=== PATIENT | female | born 1945 | race Caucasian/White ===

== ENCOUNTER 2017-01-28 13:58 | Inpatient (IN) | payer BC, MEDICARE ==
--- NOTE | ~2017-01-28 | DS ---
Discharge Summary [id number] [facility] [place]. [address] NAME: GIANNA CARDENAS : 41 STATUS : DIS IN PAT#: [id number] AGE: 71 ADM/REG DATE : 01/28/17 MR#: [id number] REPORT SERV DATE: 02/03/17 DICTATED BY: VIKAS PEREZ. DATE: 02/02/17 REPORT STATUS : Draft TRANSCRIBED BY: MODL DATE: 02/02/17 ADMISSION DATE: 01/28/2017 DISCHARGE DATE: 02/02/2017 LINEN FOLDER: Dr. Hollingsworth for Orthopedic Spine. FINAL DIAGNOSES: 1. L5 compression fracture. 2. Diabetes. 3. History of rheumatoid arthritis with Sjogren syndrome. 4. Anxiety and depression. 5. Anemia of chronic disease. HOSPITAL COURSE: Please refer to the H and P done by Dr. Loco on 01/28/2017 and the interim discharge summary done by Dr. Garzon on 02/01/2017. Since I took care of this patient, the patient was already fitted with a brace and has worked with Physical Therapy. We are waiting for [facility] to approve the patient. She was medically approved yesterday, but we are waiting for insurance. Today, we got a report that she is financially approved. She will be then transferred to [facility] today with the above diagnosis. DISCHARGE MEDICATIONS: She will be on the following medications: 1. Aspirin 81 mg a day. 2. Ativan 2 mg twice a day as needed. 3. Lexapro 30 mg a day. 4. [place] 5/325 one tab 4 times a day p.r.n. 5. Metformin 500 mg twice a day. FOLLOWUP: The patient will follow up with [facility] doctor, then follow up with Dr. Isadora Forbes after [facility] discharge, then follow up with Dr. Hollingsworth in four weeks' time. This has been explained to the patient. She agreed and understood the plan. ANYA/KYLIE Vikas Perez M.D. / [id number] CC: Richi Ardon M.D.
--- NOTE | ~2017-01-28 | HP ---
History And Physical [id number] [place]. [address] NAME: GIANNA BISHOP : 41 STATUS : ADM IN [facility]#: [id number] AGE: 71 ADM/REG DATE : 01/28/17 MR#: [id number] REPORT SERV DATE: 01/28/17 DICTATED BY: RUPERTO MAIER DATE: 01/28/17 REPORT STATUS : Draft TRANSCRIBED BY: MODL DATE: 01/28/17 DATE OF ADMISSION: 01/28/2017 CHIEF COMPLAINT: Severe back pain. HISTORY OF PRESENT ILLNESS: This is a 71-year-old female, who presents to the emergency room at [facility] with the above-mentioned complaints. History is obtained from the patient, her who is at bedside, and reviewing data available on the [employer] system. According to the patient and her , Mrs. Bishop had a fall about four weeks ago. She was trying to get up from her bed and go to the bathroom when she lost her footing and fell to the floor. She does not remember all the details of the fall as she was still very sleepy. Anyway, about couple of weeks ago, she started having possibly an upper respiratory infection with rattling in her chest and cough. The cough actually started her back pain and it hurt very bad when she coughed. She saw her physician, Dr. Isadora Forbes, who said it is a respiratory infection, treated her with outpatient oral antibiotics. This did not do anything for the pain and finally in the last few days or so, the patient has been totally bedridden, unable to move or get up and do activities of daily living. She was in tears and finally decided to come to the emergency room here to be evaluated. In the emergency room, CT scan of the spine showed L5 compression fracture with bony retropulsion and narrowing of the canal as well. The ER physicians were able to talk to Dr. Luc Hollingsworth today, who advised admission under the Hospitalist Service and he would consult in the morning. At the time of my evaluation, she denied any chest pain or palpitations. She had no orthopnea. She had a cough, which was essentially nonproductive, not associated with any hemoptysis, night sweats, or weight loss. She did have a fall as mentioned above without any loss of consciousness. No history of fevers, chills, nausea, vomiting, dysuria. No history of hematemesis, hematochezia, or hematuria. No other history of recent travel or exposures, other than those mentioned above. PAST MEDICAL HISTORY: Significant for history of diabetes mellitus type 2, history of Sjogren syndrome, and rheumatoid arthritis, nephrolithiasis in the past, history of diverticulitis, gastroesophageal reflux disease, anxiety, and depression. SOCIAL HISTORY: She has never smoked. Does not drink or use recreational drugs. FAMILY HISTORY: Noncontributory. MEDICATIONS AT HOME: Reviewed by me in the chart today and reordered by me. REVIEW OF SYSTEMS: As in history of present illness. All other systems were reviewed in detail and are quite unremarkable. History And Physical [address] [place]. [address] NAME: GIANNA BISHOP : 41 STATUS : ADM IN [facility]#: [id number] AGE: 71 ADM/REG DATE : 01/28/17 MR#: [id number] REPORT SERV DATE: 01/28/17 DICTATED BY: RUPERTO MAIER DATE: 01/28/17 REPORT STATUS : Draft TRANSCRIBED BY: KYLIE DATE: 01/28/17 PHYSICAL EXAMINATION: GENERAL: This is a very pleasant 71-year-old, in considerable discomfort due to her back pain. HEENT: Her head was atraumatic, normocephalic. She is alert, awake, oriented to time, place, and person. Pupils are equal, reacting to light and accommodating. External ocular muscles are intact. Membranes are moist and pink. Sclerae are nonicteric. NECK: Supple with no jugular venous distention, lymphadenopathy, or thyromegaly. LUNGS: Clear to auscultation with no wheezes, rubs, or crackles. HEART: Sounds were regular with no murmurs, rubs, or gallops. ABDOMEN: Soft, nontender. Bowel sounds are present. EXTREMITIES: Showed no cyanosis, clubbing, or edema. NEUROLOGIC: Grossly intact. No focal sensory or motor deficits. She was able to move all four extremities. Higher functions appeared intact. VITAL SIGNS: Today showed a temperature of 97.6, pulse 76, respirations 20 a minute, blood pressure was 135/64, oxygen saturations were 95%, breathing 2 L of oxygen via nasal cannula. LABORATORY DATA: Reviewed on the [employer] system showed a normal CMP, albumin was 2.7. Liver numbers were within normal limits. CBC showed a normal white blood cell count, hemoglobin was 10.2, hematocrit 33, and platelet count was 450,000. Her influenza A and B were negative today and urinalysis was unremarkable as well. Films of the CT of the spine were seen by me on the PACS and interpreted by me. Official radiology report was also reviewed. There is L5 compression fracture with bony retropulsion and narrowing of the canal as well. Films of the chest x-ray were reviewed by me on the PACS today and interpreted by me. Per my interpretation, there is normal bony architecture with no lobar consolidations or pleural effusions seen. IMPRESSION: 1. Intractable back pain. 2. L5 compression fracture with root pain. 3. Intractable cough. 4. Diabetes mellitus type 2. 5. Rheumatoid arthritis with Sjogren syndrome. 6. Nephrolithiasis. 7. Gastroesophageal reflux disease. 8. Anxiety and depression. PLAN: We will admit Mrs. Bishop to the Hospitalist Service to a med/surg telemetry floor for close monitoring. We will start her on pain control with intravenous Dilaudid, bedrest and consult Dr. Luc Hollingsworth to see her in the morning. We will start her on IV fluids for volume replacement, keep her n.p.o. We will also start her on bronchodilator treatments and continue supplemental oxygen therapy. We will place a Pascual catheter as she is quite unable to move. We will start her on blood sugar control with NovoLog given subcutaneously per sliding scale as well. We will continue her steroids, which she was started on in the ER. Check her random cortisol as well. We will place her on SCDs for DVT prophylaxis while she is here. Please see today's orders for details. I have discussed the above plans with the patient and her . Questions were answered. They are agreeable to the above History And Physical [address] [place]. [address] NAME: GIANNA BISHOP : 41 STATUS : ADM IN [facility]#: [id number] AGE: 71 ADM/REG DATE : 01/28/17 MR#: [id number] REPORT SERV DATE: 01/28/17 DICTATED BY: RUPERTO MAIER DATE: 01/28/17 REPORT STATUS : Draft TRANSCRIBED BY: KYLIE DATE: 01/28/17 recommendations. Further recommendations will follow after Dr. Hollingsworth has had a chance to see her tomorrow. Hospitalist Service will be following her during her stay. /KYLIE Ruperto Maier M.D. / [id number] CC: Richi Fernandes M.D.
--- NOTE | ~2017-01-28 | CN ---
Consultation Report [facility] [address] [place]. [address] NAME: GIANNA CARDENAS : 41 STATUS : ADM IN PAT#: [id number] AGE: 71 ADM/REG DATE : 01/28/17 MR#: [id number] REPORT SERV DATE: 01/30/17 DICTATED BY: LUC REN DATE: 01/30/17 REPORT STATUS : Draft TRANSCRIBED BY: MODL DATE: 01/30/17 CONSULT DATE OF CONSULTATION: 01/29/2017 CHIEF COMPLAINT: Back pain. HISTORY OF PRESENT ILLNESS: 71-year-old female with pain in the back who had a fall at home approximately 3 weeks ago. She had onset of pain after the fall but has been struggling at home, was getting up, going to the bathroom. Finally, the pain just became so severe that she was brought to the emergency room on 01/28 and x-rays taken followed by CT scan which revealed a L5 slight burst fracture. There is a very small retropulsed posterior superior endplate fragment, but it then caused significant compromise of the canal. There is also associated superior endplate compression fracture. The patient has not had loss of bowel or bladder function, has had no significant leg pain and just has back pain. Due to the fact that this is now [age] to four weeks in age and the H and P says it was four weeks ago, the patient seemed to tell me that it was three weeks ago, but nevertheless, it is three to four weeks ago and this is now subacute fracture, not an acute fracture, changing the overall prognosis with regard to anything such as kyphoplasty. Kyphoplasty for this kind of fracture in a subacute stage does not have a lot of scientific validation. There is validation for more acute fractures within the first 7 to 10 days. Past medical history, surgical history, medications, allergies, social history, family history is taken from the H and P and the chart. PHYSICAL EXAMINATION: She is alert, cooperative, well oriented. She followed directions appropriately. She does not appear in acute distress. Her spine exam revealed no gross deformities. There was no step-offs in the midline. There was no separation of the spinous processes compatible with ligamentous disruption. There was no significant paraspinous muscle spasm. Passive straight leg raising was negative bilaterally. She did not do an active straight leg raising because it caused back pain. Her motor strengths, reflexes, and sensory exam are grossly intact in both lower extremities. The toes are downgoing. No ankle clonus found. No evidence of myelopathy noted. DATA: CT scan is reviewed and I agree with the reports per the radiologist. ASSESSMENT: Stable L5 subacute burst fracture. RECOMMENDATION: At this time rather then entertain the kyphoplasty, I think it is much better to proceed with stabilization with bracing and allow the fracture to heal which will take approximately 3 months. She is already three to four weeks into the healing process and over the next two to three weeks should see significant reduction of pain as the Consultation Report [facility] [address] [place] [address] NAME: GIANNA CARDENAS : 41 STATUS : ADM IN [facility]#: [id number] AGE: 71 ADM/REG DATE : 01/28/17 MR#: [id number] REPORT SERV DATE: 01/30/17 DICTATED BY: LUC REN DATE: 01/30/17 REPORT STATUS : Draft TRANSCRIBED BY: KYLIE DATE: 01/30/17 fracture starts to mend together. We will order the LSO extending down over the buttocks, place her on pain medication and begin physical therapy. She should have the brace on any time she is out of bed. She should put the brace on in bed and have it on as she transfers out of bed. She does not need to wear the brace while lying in bed. The patient will follow up in our office in 4 weeks. She can be dispositioned per the hospitalist after the brace is available. IVANIA/KYLIE Luc Ren D.O. / [phone] CC: Richi Fernandes M.D.
--- NOTE | ~2017-01-28 | IDS ---
Interim Discharge Summary [facility] [address] [place]. [address] NAME: GIANNA CARDENAS : 41 STATUS : ADM IN [facility]#: [id number] AGE: 71 ADM/REG DATE : 01/28/17 MR#: [id number] REPORT SERV DATE: 02/01/17 DICTATED BY: ROMERO ALLEN DATE: 02/01/17 REPORT STATUS : Draft TRANSCRIBED BY: MODL DATE: 02/01/17 ADMISSION DATE: 01/28/2017 DISCHARGE DATE: ORTHOPEDIST: Dr. Hollingsworth. Date of service provided until 02/01/2017. CURRENT MEDICAL PROBLEMS: 1. Intractable pain. 2. L5 compression fracture with pain. 3. Cough. No evidence of pneumonia. 4. Diabetes mellitus type 2 controlled. 5. History of rheumatoid arthritis with Sjogren syndrome. 6. Anxiety and depression. 7. Anemia of chronic disease, stable hemoglobin and hematocrit. 8. Normal blood pressure. No evidence of hypotension. CONSULTANTS ON THE CASE: Dr. Luc Hollingsworth of Orthopedic Spine. IMAGING STUDIES DONE ON ADMISSION: CT of the lumbar spine on 01/28/2017 showed interval development of compression fracture of the L5 since 09/30/2015. This involves the L5 superior endplate with approximately 40% loss of height posteriorly at the L5 level. There is some bony retropulsion associated with the fracture which in combination with a diffuse annular bulge and facet joint arthropathy at this level produces at least moderate spinal canal narrowing. There is also mild bilateral neural foraminal narrowing L5-S1. No other compression fractures. There is diffuse bony edema mineralization, multilevel annular bulges, and facet joint arthropathy within the remainder of the lumbar spine as described above producing only mild spinal and neural foraminal stenosis. Chest x-ray 01/28/2017 shallow inspiration, minimal linear atelectasis, otherwise no acute cardiopulmonary abnormality. For the history of present illness, please refer to the history of present illness dictated by Dr. Loco on 01/28/2017. The patient was admitted for severe lower back pain and she was evaluated by Dr. Luc Hollingsworth who did not recommend any surgical intervention. He recommended special brace and the patient to go to rehabilitation. He also wants this patient to follow up with him in four weeks with him or his nurse practitioner, Isadora. This was discussed with the patient, her son, and her and the patient is waiting currently for approval to go to inpatient rehab. She was able to walk with the brace and she is still complaining of pain and she is using pain medicine for the pain and it is very important that I told family that she needs to follow up with Dr. Hollingsworth in four weeks. Diabetes mellitus type 2. Currently under control on oral metformin. She has anemia. Hemoglobin and hematocrit were stable. She has chronic cough but it has Interim Discharge Summary [address] [place]. [address] NAME: GIANNA CARDENAS : 41 STATUS : ADM IN PAT#: [id number] AGE: 71 ADM/REG DATE : 01/28/17 MR#: [id number] REPORT SERV DATE: 02/01/17 DICTATED BY: ROMERO ALLEN DATE: 02/01/17 REPORT STATUS : Draft TRANSCRIBED BY: KYLIE DATE: 02/01/17 improved while she is here and her chest x-ray does not show any pneumonia. She had a low baseline cortisol on admission but she had normal blood pressure. I performed cortisol stimulation test and it was good. Her cortisol stimulation test was normal and she does not have any hypotension and her blood pressure is in the normal range, it is 120/65, 158/73, and 140/63. We are awaiting her to be approved for [facility] for her vaginal yeast. She is on clotrimazole cream that she would apply 3 times daily for her vaginal area. She will continue Mucinex 600 mg every 12 hours. She will do metformin 500 mg p.o. b.i.d.; hydrocodone with acetaminophen 5/325 one tablet p.o. four times daily as needed for pain, total of 15 pills without any refills prescribed; Ativan 2 mg p.o. twice a day p.r.n. her home medicine, total of 15 pills given to go to [facility]; Lexapro 30 mg daily; and aspirin 81 mg daily. The patient is currently stable. My partner, Dr. Mckoy will see this patient starting tomorrow morning. /MODL Romero Allen M.D. / [id number] CC: Richi Fernandes M.D. Scott Hodges, D.O.
[~2017-01-28 13:58] MED LIST: ASAB PO; ATIVAN2 MG PO; AUG875 PO; BIOTIN5 MG OR; C2; C5 PO; CELEXA10 PO; CINNAMONPO; FML FORTE 0.25% OP; FORTAMET500 MG PO; GLUCPH PO; HYOMAX-SL0.125 MG PO; JANUMET1 TA1 PO; LEXAPRO20 PO; LORT7 PO; LORTAB 5 PO; LOVAZA1 GM PO; NORCO1 TA1 PO; NORCO1 TAB PO; OMEGA 3550 MG PO; PAXIL30 MG PO; PERCOCET1 TA4 PO; PR25 PO; PRILO PO; PRILOSEC40 MG PO; RESTASIS OPH; SALAGEN5 M1 OR; SAMOLINIC OR; ULTRAM50 PO; V5 PO; VICODINTAB PO; VITAMIN B 3 PO; VITAMIN B-122500 MCG SL; VITAMIN D31000 UNIT PO; ZYRTEC ALLGY10 MG PO
[2017-01-28 13:59] LABS: BASOPHILS 0.2 %; BASOPHILS ABSOLUTE 0.02 10/3/uL (0.0-0.16); EOSINOPHILS ABSOLUTE 0.19 10/3/uL (0.0-0.53); ER CBC TAT 0 Hrs 05 Mins; HEMOGLOBIN 10.2 g/dL (12.0-16.0); IMMATURE GRANULOCYTES 0.8 %; IMMATURE GRANULOCYTES ABSOLUTE 0.08 10/3/uL (0.0-0.11); LYMPHOCYTES 22.2 %; LYMPHOCYTES ABSOLUTE 2.12 10/3/uL (0.67-4.30); MEAN CORPUS HGB CONC 30.9 g/dL (32.0-36.0); MEAN CORPUSCULAR HEMOGLOB 24.9 pg (26.0-34.0); MEAN PLATELET VOLUME 8.8 fL (9.2-13.0); MONOCYTES 5.8 %; MONOCYTES ABSOLUTE 0.55 10/3/uL (0.21-1.20); NEUTROPHILS ABSOLUTE 6.58 10/3/uL (2.02-8.40); RBC DISTRIBUTION WIDTH 15.6 % (12.0-16.0); RED CELL COUNT 4.09 10/6/uL (4.0-5.6); WHITE BLOOD CELLS 9.5 10/3/uL (4.5-10.5)
[2017-01-28 14:00] LABS: MANUAL DIFF NO %; MEAN CORPUSCULAR VOLUME 80.7 fL (80-100); PLATELET COUNT 450 10/3/uL (150-400)
[2017-01-28 14:14] LABS: BUN (BLOOD UREA NITROGEN) 9 MG/DL (6-23); CHLORIDE, SERUM 104 MMOL/L (96-112); CO2 (CARBON DIOXIDE) 25 MMOL/L (24-34); CREATININE 0.57 MG/DL (0.55-1.02); GFR AFRICAN AMERICAN 107 ML/MIN (>=60); GFR NON AFRICAN AMERICAN 92 ML/MIN (>=60); GLUCOSE, SERUM 99 MG/DL (60-99); POTASSIUM, SERUM 4.3 MMOL/L (3.5-5.3); SGPT(ALT) 14 U/L (5-65); SODIUM, SERUM 137 MMOL/L (135-148); TOTAL BILIRUBIN 0.3 MG/DL (0-1.2); TOTAL PROTEIN 7.5 G/DL (6.0-8.5)
[2017-01-28 14:15] LABS: A/G RATIO 0.6 (0.7-1.9); ALBUMIN 2.7 G/DL (3.5-5.0); ALKALINE PHOSPHATASE 87 U/L (45-117); GLOBULIN 4.8 G/DL (2.5-4.1)
[2017-01-28 14:16] LABS: SGOT(AST) 18 U/L (5-40)
[2017-01-28 14:20] LABS: INFLUENZA A SCREEN NEGATIVE (NEGATIVE); INFLUENZA B SCREEN NEGATIVE (NEGATIVE)
[2017-01-28 15:42] LABS: ASCORBIC ACID (UR NOT ORDER) NEG (NEG); BILIRUBIN, URINE NEGATIVE (NEG); ER URINALYSIS TAT 0 Hrs 09 Mins; KETONE, URINE NEGATIVE (NEG); LEUKOCYTE ESTERASE(NOT OR NEG (NEG); NITRITE (URINE) NEG (NEG); WBC (NOT ORDERED) (RFLEX) 1 (0-5)
[2017-01-28] MEDS ORDERED: FORTAMET500 MG PO (16:47)
[2017-01-28] MEDS ORDERED: LEXAPRO20 PO (16:47)
[2017-01-28] MEDS ORDERED: NORCO1 TA1 PO (16:48)
[2017-01-28] MEDS ORDERED: ASAB PO (16:49)
[2017-01-28] MEDS ORDERED: ATIVAN2 MG PO (16:49)
[2017-01-28] MEDS ORDERED: CEFZIL500 MG PO (16:49)
[2017-01-29 06:00] LABS: BASOPHILS 0.1 %; BASOPHILS ABSOLUTE 0.01 10/3/uL (0.0-0.16); EOSINOPHILS 0 %; HEMATOCRIT 33.6 % (36.0-48.0); HEMOGLOBIN 10.4 g/dL (12.0-16.0); IMMATURE GRANULOCYTES 1.6 %; IMMATURE GRANULOCYTES ABSOLUTE 0.12 10/3/uL (0.0-0.11); LYMPHOCYTES 12.6 %; LYMPHOCYTES ABSOLUTE 0.97 10/3/uL (0.67-4.30); MEAN CORPUSCULAR HEMOGLOB 24.7 pg (26.0-34.0); MEAN CORPUSCULAR VOLUME 79.8 fL (80-100); MONOCYTES 1.9 %; MONOCYTES ABSOLUTE 0.15 10/3/uL (0.21-1.20); NEUTROPHILS 83.8 %; NEUTROPHILS ABSOLUTE 6.45 10/3/uL (2.02-8.40); PLATELET COUNT 482 10/3/uL (150-400); RBC DISTRIBUTION WIDTH 15.5 % (12.0-16.0); RED CELL COUNT 4.21 10/6/uL (4.0-5.6); WHITE BLOOD CELLS 7.7 10/3/uL (4.5-10.5)
[2017-01-29 06:03] LABS: MANUAL DIFF NO %
[2017-01-29 06:24] LABS: BUN (BLOOD UREA NITROGEN) 10 MG/DL (6-23); CALCIUM, SERUM 8.6 MG/DL (8.5-10.4); CHLORIDE, SERUM 107 MMOL/L (96-112); CO2 (CARBON DIOXIDE) 26 MMOL/L (24-34); GFR AFRICAN AMERICAN 111 ML/MIN (>=60); GFR NON AFRICAN AMERICAN 96 ML/MIN (>=60); PHOSPHORUS, SERUM 3.7 MG/DL (2.5-4.5); POTASSIUM, SERUM 3.9 MMOL/L (3.5-5.3); SODIUM, SERUM 142 MMOL/L (135-148)
[2017-01-29 06:25] LABS: GLUCOSE, SERUM 155 MG/DL (60-99); ULTRASENSITIVE TSH 0.233 MCIU/ML (0.358-3.740)
[2017-01-30 06:02] LABS: RETICULOCYTE COUNT 1.8 % (0.5-2.5)
[2017-01-30 06:21] LABS: FREE T4 1.04 NG/DL (0.76-1.46)
[2017-07-09] MEDS ORDERED: GLUCPH PO (14:52)
[2017-07-09] MEDS ORDERED: ASAB PO (14:54)
[2017-07-09] MEDS ORDERED: ATIVAN2 MG PO (14:54)
[2017-07-09] MEDS ORDERED: NORCO1 TAB PO (14:54)
[2017-07-09] MEDS ORDERED: VITAMIN D2000 UNIT PO (14:55)
[2017-07-09] MEDS ORDERED: VITAMIN B-121000 MC1 SL (14:55)
[2017-07-09] MEDS ORDERED: HAIR PO (14:56)
[2017-07-09] MEDS ORDERED: SKIN PO (14:56)
[2017-07-09] MEDS ORDERED: ALEVE220 MG PO (14:59)
[2017-07-09] MEDS ORDERED: REFRESH OPH (15:00)
[2017-07-09] MEDS ORDERED: BLUE EMU (15:01)
[2017-07-09] MEDS ORDERED: MACROBID PO (15:02)
[2017-07-09] MEDS ORDERED: VESICARE PO (15:25)
[2017-07-09] MEDS ORDERED: LEXAPRO20 PO (15:26)
[2017-07-09] MEDS ORDERED: PRILOSEC40 MG PO (15:27)
[2017-07-09] MEDS ORDERED: NEUR300 PO (15:27)
[2017-07-09] MEDS ORDERED: JANUVIA PO (15:28)
== END 2017-02-02 17:30 | DRG 552 ==
LOC: ER 13:58 → 5SO 18:33
PROVIDERS: Internal Medicine; Internal Medicine Pulmonary Disease; Nurse Practitioner Family
DX: S32.051A Stable burst fracture of fifth lumbar vertebra, initial encounter for closed fracture (principal); E11.9 Type 2 diabetes mellitus without complications; M35.00 Sjogren syndrome, unspecified; M06.9 Rheumatoid arthritis, unspecified; W06.XXXA Fall from bed, initial encounter; Y92.013 Bedroom of single-family (private) house as the place of occurrence of the external cause; Z87.442 Personal history of urinary calculi; K21.9 Gastro-esophageal reflux disease without esophagitis; F32.9 Major depressive disorder, single episode, unspecified; F41.9 Anxiety disorder, unspecified; Z79.899 Other long term (current) drug therapy; Z91.81 History of falling; Z79.82 Long term (current) use of aspirin; Z79.84 Long term (current) use of oral hypoglycemic drugs
CPT/HCPCS: 71010; 72131; 80048; 80053; 81001; 82533; 82728; 82962; 83036; 83540; 83550; 83735; 84100; 84439; 84443; 85025; 85045; 87040; 87804; 96374; 96375; 97110-GP; 97116-GP; 97162-GP; 99285; A9270-GY; J0834; J1170; J2405

== ENCOUNTER 2017-04-08 18:17 | Emergency (ER) | payer BC, MEDICARE ==
[~2017-04-08 18:17] MED LIST changes: +CEFZIL500 MG PO
[2017-07-09] MEDS ORDERED: GLUCPH PO (14:52)
[2017-07-09] MEDS ORDERED: NORCO1 TAB PO (14:54)
[2017-07-09] MEDS ORDERED: ATIVAN2 MG PO (14:54)
[2017-07-09] MEDS ORDERED: ASAB PO (14:54)
[2017-07-09] MEDS ORDERED: VITAMIN B-121000 MC1 SL (14:55)
[2017-07-09] MEDS ORDERED: VITAMIN D2000 UNIT PO (14:55)
[2017-07-09] MEDS ORDERED: SKIN PO (14:56)
[2017-07-09] MEDS ORDERED: HAIR PO (14:56)
[2017-07-09] MEDS ORDERED: ALEVE220 MG PO (14:59)
[2017-07-09] MEDS ORDERED: REFRESH OPH (15:00)
[2017-07-09] MEDS ORDERED: BLUE EMU (15:01)
[2017-07-09] MEDS ORDERED: MACROBID PO (15:02)
[2017-07-09] MEDS ORDERED: VESICARE PO (15:25)
[2017-07-09] MEDS ORDERED: LEXAPRO20 PO (15:26)
[2017-07-09] MEDS ORDERED: PRILOSEC40 MG PO (15:27)
[2017-07-09] MEDS ORDERED: NEUR300 PO (15:27)
[2017-07-09] MEDS ORDERED: JANUVIA PO (15:28)
== END 2017-04-08 20:00 | disposition home or self-care (01) ==
LOC: ER 18:17
DX: M54.5 Low back pain (principal); G89.29 Other chronic pain; E11.9 Type 2 diabetes mellitus without complications; Z88.5 Allergy status to narcotic agent; Z79.82 Long term (current) use of aspirin; Z79.84 Long term (current) use of oral hypoglycemic drugs; Z79.899 Other long term (current) drug therapy
CPT/HCPCS: 96372; 99283; A9270-GY; J2800